=== PATIENT | female | born 1950 | race Caucasian/White ===

== ENCOUNTER 2025-03-20 12:30 | Outpatient (RCR) | payer MEDICARE, OTHER, SELFPAY ==
--- NOTE | 2024-11-15 18:00 | HP.PTEVAL_ITS ---
Patient's Visit Information Visit Information Visit Information: MARGARITA DUTTA is a 74 year old F referred to Physical Therapy by BROOK Allan with a diagnosis of Vaginal wall prolapse N81.10. Date of Evaluation: 11/15/24 Physical Therapist: Christie Maddox Visit Plan Frequency: 1x/Week Duration: 3 Months Plan: Will see her 1 x week. 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 Add week 2 next visit. She will also need work on right lumbar , piriformis to address her lower abdominal/pelvic pain. She cares for her disabled so will need education on pressure management with activities such as transfers to decrease pressure thru her pelvic floor. Subjective Subjective: She was referred for a vaginal wall prolapse N81.10. About a year ago, she was washing herself and she felt a bulge. She saw a specialist in [place]. Anterior and posterior stage 2 and apical stage 0. She had been doing pretty well until she started noticing lower abdominal pain. When she urinates , she feels like the urine has to get over the hump. She thinks she is emptying completely. She has accidents if she doesn't get to the restroom in time in the morning. She wears a pad every day. If the urgency comes on , she cannot control it. She cares for her disabled . She has to push him in a wheelchair around the home and helps him with transfers. 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 She had 2 bad falls. Traumatic brain injury. 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 She had a stroke. She has low back pain. She had right low back pain. She feels lower abdominal pain intermittent 3/10 (she isn't sure what triggers the pain). She has some days where she doesn't feel the abdominal, pelvic pain. She had 4 children and one miscarriage. Pain Lower abdomen: Pain Intensity (Out of 10): 3 low back pain: Pain Intensity (Out of 10): 4 Objective Objective: Incontinence impact questionnaire 2, Urogenital distress inventory 9, Laycock 3-/4/2/3, hard to bear down on exam but noticed cystocele and rectocele 1, Mild pelvic floor tightness left side, Right rotation L1-L5 , moderate right lumbar and piriformis tightness and tenderness Goals Goal 1:: Margarita will be able to do activities with caring for her disabled including transfers, etc. without feeling pelvic pain, lower abdominal pain during or after. Goal Time Frame: 8-12 Weeks Goal 2:: Margarita will be able to delay using the restroom by 5 minutes in the morning to avoid any incontinence episodes. Goal Time Frame: 6-8 Weeks Goal 3:: Margarita will be able to engage her pelvic floor with activities such as transfering her to avoid more pressure on her prolapse. Goal Time Frame: 8-12 Weeks Goal Time Frame: 8-12 Weeks Rehabilitation Potential Physical Therapy Diagnosis: Pelvic and perineal pain, Urge incontinence Rehabilitation Potential: Good Anticipated Interventions Patient/Client Instruction: Educate patient on: Condition and Plan of Care For the Purpose of:: To improve muscle performance and motor function, To improve health and function and To improve self management Therapeutic Exercise to Include: Strength training and Neuromotor development For the Purpose of:: To decrease pain, To improve muscle performance and motor function, To improve health and function and To improve self management Manual Therapy Techniques to Include: Trigger point massage, Massage, Mobilization and Soft tissue mobilization For the Purpose of:: To decrease pain, To improve muscle performance and motor function, To improve ability to perform ADL's, To improve health and function and To improve self management Ultrasound (thermal/non thermal): Yes For the Purpose of:: To decrease pain and To improve health and function Text: Thank you for the opportunity to evaluate your patient. For Medicare and Medicare HMO plans, please review the plan of care and approve it. It will need to be FAXED BACK to us at [phone] for Medicare purposes. For Medicare only, by signing this I certify the plan of care. Please let me know if there are questions or concerns regarding this plan of care. Physician Signature: Date:
--- NOTE | 2024-12-13 12:55 | HP.OTEVAL_ITS ---
Patient's Visit Information Visit Information Visit Information: MARGARITA DUTTA is a 74 year old F, referred to Occupational Therapy by BROOK Allan, with a diagnosis of Lymphedema, lipedema. Date of Evaluation: 12/13/24 Occupational Therapist: Sadie Justin, JEAN PAUL/Navin, CHT Subjective Subjective: This 74 year old female was seen for OT eval dx of lipeodema -and lymphedema pt has been see a PT that worked with her lipoedema and lymphedema. pt states she has been using compression socks and having manual lymph massage done. Pt states the therapist she was seen for the self-lymph massage she cannot see. pt states she does need new compression hose- she is not sure what compression class she currently has. pt states she can only wear knee high as the thigh high are too painful. pt denies being ed. on home program Pain LE b: Current Pain Intensity: 3 Pain Intensity Range: 4 Lymphedema (Circumferential Measure) Mid-foot: right 19cm left 19.5cm Ankle: right 25cm left 26cm Lower calf: right 35cm left 35.5cm Largest calf: right 40cm left 41cm Below knee: right 39cm left 39cm Rehabilitation General Assessment: pt demo with positive symptoms of lipedema and lymphedema. pt demo need for skilled OT services to ed. pt on life long mtg. of lymphedema. pt would benefit from a compression pump to assist in lifelong mtg. Today t herapist ed. pt on lymph stim exercise, self-manual lymph massage and new compression garments. pt receptive and agree to POC. Rehabilitation Potential: Questionable Anticipated Interventions Anticipated Interventions: Education re Diagnosis, Education re Life-long lymphedema Management, Education re Skin Care and Precautions, Education re Self Massage Techniques and Education re Correct Donning Tech,Care&Wearing Sched Comp Garments Visit Plan TEXT: Thank you for the opportunity to evaluate your patient. For Medicare and Medicare HMO plans, please review the plan of care and approve it. It will need to be FAXED BACK to us at [phone] for Medicare purposes. Please let me know if there are questions or concerns regarding this plan of care. Physician Signature: Date:
--- NOTE | 2024-12-13 13:00 | HP.OTEVAL_ITS ---
Patient's Visit Information Visit Information Visit Information: MARGARITA DUTTA is a 74 year old F, referred to Occupational Therapy by BROOK Allan, with a diagnosis of Lymphedema, lipedema. Date of Evaluation: 12/13/24 Occupational Therapist: Sadie Justin, JEAN PAUL/Navin, CHT Subjective Subjective: This 74 year old female was seen for OT eval dx of lipeodema -and lymphedema pt has been see a PT that worked with her lipoedema and lymphedema. pt states she has been using compression socks and having manual lymph massage done. Pt states the therapist she was seen for the self-lymph massage she cannot see. pt states she does need new compression hose- she is not sure what compression class she currently has. pt states she can only wear knee high as the thigh high are too painful. pt denies being ed. on home program Pain LE b: Current Pain Intensity: 3 Pain Intensity Range: 4 Lymphedema (Circumferential Measure) Mid-foot: right 19cm left 19.5cm Ankle: right 25cm left 26cm Lower calf: right 35cm left 35.5cm Largest calf: right 40cm left 41cm Below knee: right 39cm left 39cm Lower Limb Functional Index Lower Extremity Functional Score: 50 Goals Goal: Patient will demonstrate a 20% reduction in edema by discharge: Yes Goal: Patient will demonstrate adequate knowledge of self-massage by the end of the second week.: Yes Goal: Patient will demonstrate adequate knowledge of skin care and precautions by the end of the first week.: Yes Goal: Patient will demonstrate adequate knowledge of therapeutic exercises by discharge.: Yes Goal: Patient will select an appropriate compression garment and demonstrate adequate knowledge of correct donning technique, care and wearing schedule by discharge.: Yes Goal: Patient will voice understanding of need to replace compression garment every four to six months by discharge.: Yes Rehabilitation General Assessment: pt demo with positive symptoms of lipedema and lymphedema. pt demo need for skilled OT services to ed. pt on life long mtg. of lymphedema. pt would benefit from a compression pump to assist in lifelong mtg. Today therapist ed. pt on lymph stim exercise, self-manual lymph massage and new compression garments. pt receptive and agree to POC. Rehabilitation Potential: Questionable Anticipated Interventions Anticipated Interventions: Education re Diagnosis, Education re Life-long lymphedema Management, Education re Skin Care and Precautions, Education re Self Massage Techniques and Education re Correct Donning Tech,Care&Wearing Sched Comp Garments Visit Plan Frequency: 1x/Week Duration: 4 Weeks TEXT: Thank you for the opportunity to evaluate your patient. For Medicare and Medicare HMO plans, please review the plan of care and approve it. It will need to be FAXED BACK to us at [phone] for Medicare purposes. Please let me know if there are questions or concerns regarding this plan of care. Physician Signature: Date:
--- NOTE | 2025-03-20 14:32 | HP.PTREVAL ---
Re-Evaluation Intro: Christa Pierre, JENNIC, It has been my pleasure to treat NAIMA DUTTA over the last 10 visits for Vaginal wall prolapse N81.10. Please see the progress note below for an update on the physical therapy plan of care! Subjective Subjective: She feels that she has noticed improvement in her pain symptoms but she continues to notice the prolapse. At this time, she is managing her prolapse conservatively and plans to continue . Average pelvic pain lately has been averaging 2/10. She feels at least 70% improved with her pelvic pain complaints but continues to notice discomfort at times with functional activities around her home. She feels she is continuing to make steady progress. Objective Objective/Function: Naima would benefit from continued skilled PT intervention. She continues to have pelvic pain complaints with functional activities such as increased time on her feet with kitchen activities and bending, twisting, lifting to care for her but it is 70% improved. Her pelvic floor strength has improved but she continues to have to manually adjust her prolapse intermittently in the day when she has done more lifting or standing. Plan Plan Plan: Continue 1 x week. Requesting 4 additional PT visits with date range of 03/27/25-04/17/25. Continue work on lower abdomen and add right hip adductor manual therapy. Pelvic floor tightness continues left side . Goals Goals Goal 1:: Naima will be able to do activities with caring for her disabled including transfers, etc. without feeling pelvic pain, lower abdominal pain during or after. Goal Time Frame: 8-12 Weeks Goal Progress: 70% , 2/10 pain Goal 2:: Naima will be able to delay using the restroom by 5 minutes in the morning to avoid any incontinence episodes. 03/20/25 She can still experience urgency and leaking in the morning (but she has a ways to walk) and can leak. She reports at least 50% improvement in her urgency, leaking during the day. Goal Time Frame: 6-8 Weeks Goal 3:: Naima will be able to engage her pelvic floor with activities such as transfering her to avoid more pressure on her prolapse. Goal Time Frame: 8-12 Weeks Goal Progress: Goal Met Goal Time Frame: 8-12 Weeks Anticipated Interventions Anticipated Interventions Patient/Client Instruction: Educate patient on: Condition and Plan of Care For the Purpose of:: To improve muscle performance and motor function, To improve health and function and To improve self management Therapeutic Exercise to Include: Strength training and Neuromotor development For the Purpose of:: To decrease pain, To improve muscle performance and motor function, To improve health and function and To improve self management Manual Therapy Techniques to Include: Trigger point massage, Massage, Mobilization and Soft tissue mobilization For the Purpose of:: To decrease pain, To improve muscle performance and motor function, To improve ability to perform ADL's, To improve health and function and To improve self management Ultrasound (thermal/non thermal): Yes For the Purpose of:: To decrease pain and To improve health and function Re-Evaluation Ending Re-evaluation ending: Please do not hesitate to contact me at [phone] by phone or if you have questions or concerns regarding this new plan of care! Sincerely, Christie Maddox
--- NOTE | 2025-04-23 11:56 | HP.PT.NRP ---
Patient Information Patient Information: MARGARITA DUTTA was seen in my office for initial evaluation on 11/15/24. The following Plan of Care was established for this patient: POC Established Initial Frequency: 1x/Week Initial Duration: 3 Months Anticipated Interventions Patient/Client Instruction: Educate patient on: Condition and Plan of Care For the Purpose of:: To improve muscle performance and motor function, To improve health and function and To improve self management Therapeutic Exercise to Include: Strength training and Neuromotor development For the Purpose of:: To decrease pain, To improve muscle performance and motor function, To improve health and function and To improve self management Manual Therapy Techniques to Include: Trigger point massage, Massage, Mobilization and Soft tissue mobilization For the Purpose of:: To decrease pain, To improve muscle performance and motor function, To improve ability to perform ADL's, To improve health and function and To improve self management Ultrasound (thermal/non thermal): Yes For the Purpose of:: To decrease pain and To improve health and function Last Seen Last Seen: This patient was last seen in our office 03/20/25. Pertinent comments regarding their Physical therapy will appear below: Called patient in a follow up. She was unable to continue treatment due to insurance limitations. She is continuing the exercises when she can and reports that the therapy helped a lot. At this time, we are discharging her from PT. At this point I will be discontinuing this patient from physical therapy. I would be happy to see this patient again in the future if found appropriate by the physician. Thank you! Christie Maddox
== END 2025-03-20 19:00 | disposition home or self-care (01) ==
LOC: PT 12:30
PROVIDERS: PCP Internal Medicine; Referring Provider Internal Medicine; Visit Provider Internal Medicine
DX: N81.10 Cystocele, unspecified (principal); R60.9 Edema, unspecified; I89.0 Lymphedema, not elsewhere classified
CPT/HCPCS: 97110; 97112; 97140; 97162; 97166; 97530